=== PATIENT | female | born 1980 ===

== ENCOUNTER → 2016-11-19 | Outpatient (CLI) | payer BC | END | disposition home or self-care (01) | LOC: C.PATHSPEC 17:03 | PROVIDERS: ATTEND Nurse Practitioner Adult Health | DX: R31.29 Other microscopic hematuria (principal) ==

== ENCOUNTER → 2016-12-15 | Outpatient (CLI) | payer BC ==
[~2016-12-15] MED LIST: OPTIRAY 320 IV PRN
--- NOTE | 2016-12-15 13:45 | DIAGNOSTIC IMAGING REPORT ---
ABD/PELVIS COMBO CLINICAL HISTORY: 36 years-old Female presenting with microhematuria. TECHNIQUE: Multidetector CT of the abdomen and pelvis was performed before and after the administration of intravenous contrast. IV contrast: 120 mL of Optiray 320. A dose lowering technique was used consistent with the principles of ALARA (as low as reasonably achievable). COMPARISON: None. CT DOSE (mGy.cm): The estimated cumulative dose is 570.74 mGycm. FINDINGS: Control Technician topogram: Unremarkable. Lung bases clear. Right lower lobe pulmonary cyst. Normal heart size. No pericardial or pleural effusion. Well-defined hypodensity in the left lobe of the liver, indeterminate but likely hepatic cyst or hamartoma. Patent hepatic vasculature. Mild intrahepatic ductal prominence. Gallbladder normal. No extra hepatobiliary ductal dilatation. Spleen, pancreas, adrenal glands normal. Nonobstructing 2 mm calculus at the lower pole of the right kidney (series 3 image 154). No calculus noted in the left kidney. Normal renal enhancement and excretion bilaterally without evidence of a filling defect within the collecting system. No hydronephrosis. Normal ureters. Bladder normal. Bowel normal. No obstruction. No free fluid or gas. Uterus and ovaries normal for age. 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 Abdominal wall normal. Osseous structures normal. IMPRESSION: 1. Nonobstructing 2 mm calculus at the lower pole the right kidney. No hydronephrosis. Electronically signed by: Willian Dukes M.D. 12/15/2016 1:43 PM Dictated Date/Time: 12/15/2016 1:37 PM
== END | disposition home or self-care (01) ==
LOC: C.CTS 12:39
PROVIDERS: ATTEND Nurse Practitioner Adult Health
DX: R31.29 Other microscopic hematuria (principal); N20.0 Calculus of kidney

== ENCOUNTER → 2017-12-09 | Outpatient (CLI) | payer BC ==
--- NOTE | 2017-12-09 11:58 | DIAGNOSTIC IMAGING REPORT ---
KUB HISTORY: R31.29 [id number] Recurrent UTIN20.0 NephrolithiasisRAD COMPARISON: Abdomen and pelvis CT 12/15/2016. FINDINGS: The bowel gas pattern is unremarkable. There are no dilated loops of small bowel to suggest an obstruction. No renal calculi. No ureteral calculi. No pneumoperitoneum or pneumatosis. IMPRESSION: No renal or ureteral calculi identified by this modality. Electronically signed by: Sohan Emerson M.D. 12/09/2017 11:57 AM Dictated Date/Time: 12/09/2017 11:56 AM
== END | disposition home or self-care (01) ==
LOC: C.RAD 11:20
PROVIDERS: ATTEND Nurse Practitioner Adult Health
DX: N20.0 Calculus of kidney (principal); N39.0 Urinary tract infection, site not specified; R31.29 Other microscopic hematuria